=== PATIENT | female | born 1930 ===

== ENCOUNTER 2017-10-07 16:49 | Inpatient (IN) | payer BC ==
--- NOTE | 2017-10-07 17:53 | ED PDOC ---
HPI: Head Injury Time Seen by Provider: 10/07/17 17:41 Chief Complaint (Nursing): Headache History Per: Family Onset/Duration Of Symptoms: Other Patient States: Fell Striking Head Loss Of Consciousness: No Additional Complaint(s): Multiple episodes of unstaedy gait nad fall over psat 3 weeks with most recent episode 3 days ago. fell and struck left eyebrow and forehead No LOC. Pt c/o left sided headache and left periorbital pain. No nausea vomiting. denies chest pain or palpitations. No focal peripheral weakness. Past Medical History Vital Signs: Last Vital Signs Temp 98.3 F 10/07/17 17:16 Pulse 73 10/07/17 17:16 Resp 16 10/07/17 17:16 BP 151/73 H 10/07/17 17:16 Pulse Ox 99 10/07/17 17:16 - Medical History PMH: Dementia, HTN - Family History Family History: States: Unknown Family Hx - Immunization History Hx Tetanus Toxoid Vaccination: No Hx Influenza Vaccination: No Hx Pneumococcal Vaccination: No - Home Medications Home Medications: Ambulatory Orders Medication Instructions Recorded Donepezil [Aricept] 10 mg PO DAILY 10/07/17 Enalapril/Hydrochlorothiazide 5 mg PO DAILY 10/07/17 [Enalapril-Hctz 5-12.5 mg Tab] - Allergies Allergies/Adverse Reactions: Allergies Allergy/AdvReac Type Severity Reaction Status Date / Time No Known Allergies Allergy Verified 10/07/17 17:23 Review of Systems ROS Statement: Except As Marked, All Systems Reviewed And Found Negative Neurological: Positive for: Incoordination, Confusion, Headache Physical Exam - Reviewed Nursing Documentation Reviewed: Yes Vital Signs Reviewed: Yes - Physical Exam Appears: Positive for: Non-toxic, No Acute Distress Head Exam: Positive for: ATRAUMATIC, NORMOCEPHALIC. Negative for: NORMAL INSPECTION (Soft tissue swelling with left supraorbital tenderness. No deformity ) Skin: Positive for: Normal Color, Warm, DRY Eye Exam: Positive for: EOMI, Normal appearance, PERRL ENT: Positive for: Normal ENT Inspection Neck: Positive for: Normal, Painless ROM Cardiovascular/Chest: Positive for: Regular Rate, Rhythm Respiratory: Positive for: CNT, Normal Breath Sounds Gastrointestinal/Abdominal: Positive for: Normal Exam, Soft Back: Positive for: Normal Inspection Extremity: Positive for: Normal ROM Neurologic/Psych: Positive for: Alert, Gait (Unsteady). Negative for: Oriented (x2), Motor/Sensory Deficits - Laboratory Results Result Diagrams: 10/07/17 18:01 10/07/17 18:01 - ECG O2 Sat by Pulse Oximetry: 99 Disposition - Clinical Impression Clinical Impression: Syncope - Patient ED Disposition Is Patient to be Admitted: Yes - Disposition Disposition Time: 21:25 Condition: FAIR Forms: Literably (Togolese) - Pt Status Changed To: Hospital Disposition Of: Inpatient - Admit Certification Admit to Inpatient:: After my assessment, the patient will require hospitalization for at least two midnights. This is because of the severity of symptoms shown, intensity of services needed, and/or the medical risk in this patient being treated as an outpatient. - POA Present On Arrival: None
--- NOTE | 2017-10-07 18:29 | CT ---
PROCEDURE: CT HEAD WITHOUT CONTRAST. HISTORY: r/o bleed COMPARISON: None available. TECHNIQUE: Axial computed tomography images were obtained through the head/brain without intravenous contrast. Radiation dose: Total exam DLP = 753.97 mGy-cm. This CT exam was performed using one or more of the following dose reduction techniques: Automated exposure control, adjustment of the mA and/or kV according to patient size, and/or use of iterative reconstruction technique. FINDINGS: HEMORRHAGE: No intracranial hemorrhage. BRAIN: There are moderate chronic microangiopathic changes. There is no mass, mass effect or abnormal extra-axial fluid collection.There are coarse atherosclerotic calcifications in the cavernous carotid arteries. VENTRICLES: There is mild age-related global parenchymal volume loss and proportionate enlargement of the ventricles and cortical sulci. CALVARIUM: There is no calvarial fracture or extracranial soft tissue swelling. PARANASAL SINUSES: Predominantly clear. MASTOID AIR CELLS: Predominantly clear. OTHER FINDINGS: None. IMPRESSION: No acute intracranial abnormality. Moderate chronic microangiopathic changes and mild age-related global parenchymal volume loss.
--- NOTE | 2017-10-07 18:36 | RAD ---
HISTORY: COMPARISON: No prior. TECHNIQUE: Chest PA and lateral FINDINGS: LINES AND TUBES: None. LUNG AND PLEURA: The lungs are hyperinflated and there is peribronchial thickening with chronic changes in both lungs. No focal consolidation. HEART AND MEDIASTINUM: The heart is not enlarged. The hilar and mediastinal contours are within normal limits. SKELETAL STRUCTURES: The bony structures are within normal limits for the patient's age. VISUALIZED UPPER ABDOMEN: Normal. OTHER FINDINGS: None. IMPRESSION: No active pulmonary disease. COPD.
[2017-10-07 18:48] LABS: BASO % 1.1 % (0.0-2.0); EOS % 0.6 % (0.0-4.0); HEMOGLOBIN 11.8 g/dL (12.0-16.0); LYMPH # 0.6 K/uL (1.0-4.3); MEAN CELL VOLUME 100.9 fl (81.0-99.0); MEAN CORPUSCULAR HEMOGLOBIN 33.6 pg (27.0-31.0); MEAN CORPUSCULAR HGB CONC 33.3 g/dL (33.0-37.0); MONO # 0.2 K/uL (0.0-0.8); MONO % 11.1 % (0.0-10.0); NEUT # 0.8 K/uL (1.8-7.0); NEUT % 48.2 % (50.0-75.0); NRBC % 0.3 % (0.0-0.0); RBC 3.51 Mil/uL (3.80-5.20); RED CELL DISTRIBUTION WIDTH 14.3 % (11.5-14.5)
--- NOTE | 2017-10-07 18:48 | CT ---
PROCEDURE: CT scan maxillofacial skeleton 10/07/2017. HISTORY: Trauma COMPARISON: Comparison made with CT scan of the brain earlier same day. Of TECHNIQUE: Contiguous axial CT images of the maxillofacial bones were obtained. Coronal and sagittal reformats were generated. Radiation dose: Total exam DLP = 730.88 mGy-cm. This CT exam was performed using one or more of the following dose reduction techniques: Automated exposure control, adjustment of the mA and/or kV according to patient size, and/or use of iterative reconstruction technique. FINDINGS: NASAL BONES: Nasal bones appear intact. ORBITS: Bony orbits appear intact. Again noted are are bilateral ocular prostatic implants and elongation of the globes in the AP dimension possibly representing coloboma or staphyloma formation. Rule out glaucoma. Ophthalmologic consultation suggested. PARANASAL SINUSES/ MASTOIDS: Clear. MAXILLA: The maxilla including the anterior nasal spine intact. . MANDIBLE/ TEMPOROMANDIBULAR JOINTS: Unremarkable. SKULL BASE: Unremarkable. TEMPORAL BONES: Middle ears and mastoid grossly unremarkable. OTHER FINDINGS: None. IMPRESSION: No evidence of acute maxillofacial skeletal fractures. Bilateral ocular prostatic implants of. There is elongation of the globes in the AP dimension possibly representing coloboma or staphyloma formation. Rule out glaucoma. Clinical correlation recommended. Ophthalmologic consultation suggested
[2017-10-07 18:51] LABS: WHITE BLOOD COUNT 1.6 K/uL (4.8-10.8)
[2017-10-07 18:52] LABS: ALB/GLOB RATIO 1.2 (1.0-2.1); ALBUMIN 3.6 g/dL (3.5-5.0); ALT/SGPT 42 U/L (9-52); AST/SGOT 29 U/L (14-36); BLOOD UREA NITROGEN 21 mg/dl (7-17); CALCIUM 8.4 mg/dL (8.4-10.2); GFR AFRICAN-AMERICAN > 60; GFR NON-AFRICAN AMERICAN > 60
[2017-10-08 05:46] LABS: HEMOGLOBIN 12.7 g/dL (12.0-16.0); MEAN CELL VOLUME 101.4 fl (81.0-99.0); MEAN CORPUSCULAR HEMOGLOBIN 33.8 pg (27.0-31.0); MEAN CORPUSCULAR HGB CONC 33.3 g/dL (33.0-37.0); RBC 3.76 Mil/uL (3.80-5.20); RED CELL DISTRIBUTION WIDTH 14.3 % (11.5-14.5); WHITE BLOOD COUNT 2.2 K/uL (4.8-10.8)
[2017-10-08 06:06] LABS: ALB/GLOB RATIO 1.2 (1.0-2.1); ALT/SGPT 40 U/L (9-52); AST/SGOT 33 U/L (14-36); BLOOD UREA NITROGEN 20 mg/dl (7-17); CALCIUM 9.2 mg/dL (8.4-10.2); GFR AFRICAN-AMERICAN > 60; GFR NON-AFRICAN AMERICAN > 60
--- NOTE | 2017-10-08 09:38 | CARD ---
APPROVED REPORT EKG Measurement Heart [id number] CO [id number] <Conclusion> Sinus bradycardia Voltage criteria for left ventricular hypertrophy Cannot rule out Septal infarct, age undetermined Abnormal ECG
--- NOTE | 2017-10-08 09:46 | CARD ---
APPROVED REPORT EKG Measurement Heart [id number] HI [id number] <Conclusion> Normal sinus rhythm Voltage criteria for left ventricular hypertrophy Cannot rule out Septal infarct, age undetermined Abnormal ECG
--- NOTE | 2017-10-08 10:05 | CP.PCM.HP ---
History of Present Illness - History of Present Illness History of Present Illness: Patient seen and examined at bedside with Dr. Parknison 87 yr old F brought into ED by family with complaint of left sided headache and left periorbital pain s/p fall 3 days ago. Family at bedside report patient cannot ambulate on her own due to unsteady gait, unsure if patient had any loss of consciousness. Has had multiple/recurrent falls secondary to unsteady gait. PMHx includes advanced dementia and HTN. Patient is a poor historian. Denies nausea, vomiting, weakness, visual changes. Patient follows commands, moves all extremites, family denies bleeding after fall. PMD: Dr. Resendez PMHx: advanced dementia, HTN, unsteady gait with multiple falls SurgHx: denies FMHx: noncontributory SocHx: denies tobacco/Etoh or drugs Medications: see medication reconciliation Allergies: NKDA ED course: vitals stable -EKG: sinus bradycardia at 55 bpm, no significant ST-T changes -Maxillofacial CT: no acute fractures, bilateral ocular prosthetic implants present -Head CT: no acute intracranial abnormalities, moderated microangiopathic changes -CXR: no active disease -CBC: WBC 1.6, H/H 11.8/35.4, MCV 100.9, plts 210 -CMP: within normal limits - Present on Admission - Present on Admission Any Indicators Present on Admission: No History of DVT/PE: No History of Uncontrolled Diabetes: No Urinary Catheter: No Decubitus Ulcer Present: No History Surgical Site Infection Following: None Review of Systems - Review of Systems Systems not reviewed;Unavailable: Dementia (advanced) Review of Systems: patient does answer some questions but is a poor historia, says no to everything (denies body pain, chest pain, SOB, weakness, dizziness, headaches) Past Patient History - Past Medical History & Family History Past Medical History?: Yes - Past Social History Smoking Status: Never Smoked - CARDIAC Hx Cardiac Disorders: Yes - PULMONARY Hx Respiratory Disorders: No - NEUROLOGICAL Hx Neurological Disorder: Yes - HEENT Hx HEENT Problems: No - RENAL Hx Chronic Kidney Disease: No - ENDOCRINE/METABOLIC Hx Endocrine Disorders: No - HEMATOLOGICAL/ONCOLOGICAL Hx Blood Disorders: No Hx AIDS: No Hx Human Immunodeficiency Virus (HIV): No - INTEGUMENTARY Hx Dermatological Problems: No - MUSCULOSKELETAL/RHEUMATOLOGICAL Hx Musculoskeletal Disorders: No Hx Falls: Yes - GASTROINTESTINAL Hx Gastrointestinal Disorders: No - GENITOURINARY/GYNECOLOGICAL Hx Genitourinary Disorders: No - PSYCHIATRIC Hx Psychophysiologic Disorder: No Hx Substance Use: No - SURGICAL HISTORY Hx Surgeries: No - ANESTHESIA Hx Anesthesia: No Meds Allergies/Adverse Reactions: Allergies Allergy/AdvReac Type Severity Reaction Status Date / Time No Known Allergies Allergy Verified 10/07/17 17:23 Physical Exam - Constitutional Appears: No Acute Distress Additional comments: cooperative with exam, small thin frame - Head Exam Head Exam: NORMAL INSPECTION - Eye Exam Eye Exam: Periorbital tenderness (left , with minimal swelling and bruising) - ENT Exam ENT Exam: Mucous Membranes Moist - Neck Exam Neck exam: Positive for: Full Rom. Negative for: Lymphadenopathy - Respiratory Exam Respiratory Exam: Clear to Auscultation Bilateral, NORMAL BREATHING PATTERN - Cardiovascular Exam Cardiovascular Exam: REGULAR RHYTHM, +S1, +S2 - GI/Abdominal Exam GI & Abdominal Exam: Normal Bowel Sounds, Soft - Extremities Exam Extremities exam: Positive for: full ROM. Negative for: calf tenderness, pedal edema Additional comments: scars and bruises all over bilateral LE - Neurological Exam Neurological exam: Alert, CN II-XII Intact (grossly intact) Additional comments: not oriented x 3 - Psychiatric Exam Psychiatric exam: Normal Affect, Normal Mood - Skin Skin Exam: Normal Color, Warm Results - Vital Signs Recent Vital Signs: Last Vital Signs Temp 97.6 F 10/08/17 08:12 Pulse 58 L 10/08/17 08:12 Resp 18 10/08/17 08:12 BP 155/83 H 10/08/17 08:12 Pulse Ox 100 10/08/17 08:12 - Labs Result Diagrams: 10/08/17 05:33 10/08/17 05:33 Labs: Laboratory Results - last 24 hr 10/07/17 10/07/17 10/08/17 18:01 18:01 05:33 WBC 1.6 L* 2.2 L RBC 3.51 L 3.76 L Hgb 11.8 L 12.7 Hct 35.4 38.1 MCV 100.9 H 101.4 H MCH 33.6 H 33.8 H MCHC 33.3 33.3 RDW 14.3 14.3 Plt Count 210 216 MPV 8.0 Neut % (Auto) 48.2 L Lymph % (Auto) 39.0 [place] % (Auto) 11.1 H Eos % (Auto) 0.6 Baso % (Auto) 1.1 Neut # (Auto) 0.8 L Lymph # (Auto) 0.6 L [place] # (Auto) 0.2 Eos # (Auto) 0.0 Baso # (Auto) 0.0 Sodium 140 Potassium 3.6 Chloride 104 Carbon Dioxide 28 Anion Gap 12 BUN 21 H Creatinine 0.7 Est GFR ( Amer) > 60 Est GFR (Non-Af Amer) > 60 Random Glucose 117 H Calcium 8.4 Total Bilirubin 0.4 AST 29 ALT 42 Alkaline Phosphatase 86 Total Protein 6.8 Albumin 3.6 Globulin 3.2 Albumin/Globulin Ratio 1.2 10/08/17 05:33 WBC RBC Hgb Hct MCV MCH MCHC RDW Plt Count MPV Neut % (Auto) Lymph % (Auto) [place] % (Auto) Eos % (Auto) Baso % (Auto) Neut # (Auto) Lymph # (Auto) [place] # (Auto) Eos # (Auto) Baso # (Auto) Sodium 142 Potassium 3.9 Chloride 103 Carbon Dioxide 30 Anion Gap 13 BUN 20 H Creatinine 0.6 L Est GFR ( Amer) > 60 Est GFR (Non-Af Amer) > 60 Random Glucose 74 Calcium 9.2 Total Bilirubin 0.6 AST 33 ALT 40 Alkaline Phosphatase 80 Total Protein 7.4 Albumin 4.0 Globulin 3.4 Albumin/Globulin Ratio 1.2 Assessment & Plan - Assessment and Plan (Free Text) Assessment: 87 yr old F admitted for head trauma s/p fall with possible syncope. PMHx includes advanced dementia, HTN, unsteady gait with multiple falls. BMI 15.9 due to small frame. Plan: -admit to telemetry -fall precautions: 1:1 observation -Cardiology consult appreciated -Neurology consult appreciated (f/u vit B12, TSH, folate, methylmalonic acid) -heart healthy diet -resume home medications -SCD's for now, as increased fall risk -PT/OT - Date & Time Date: 10/08/17 Time: 10:15
--- NOTE | 2017-10-08 16:26 | CP.PCM.CON ---
History of Present Illness - History of Present Illness History of Present Illness: I was asked to see patient due to syncope. THe patient cannot given adequate history. There was a report of syncope. Patient is comfortable at this time. Review of Systems - Constitutional Constitutional: absent: As Per HPI, Anorexia, Chills, Daytime Sleepiness, Excessive Sweating, Fatigue, Fever, Frequent Falls, Headache, Increased Appetite , Lethargy, Malaise, Night Sweats, Snoring, Sleep Apnea, Weight Gain, Weight Loss, Weakness, Other - EENT Eyes: absent: As Per HPI, Blind Spots, Blurred Vision, Change in Vision, Decreased Night Vision, Diplopia, Discharge, Dry Eye, Exophthalmos, Floaters, Irritation, Itchy Eyes, Loss of Peripheral Vision, Pain, Photophobia, Requires Corrective Lenses, Sees Flashes, Spots in Vision, Tunnel Vision, Other Visual Disturbances, Loss of Vision, Other Ears: absent: As Per HPI, Decreased Hearing, Ear Discharge, Ear Pain, Tinnitus, Abnormal Hearing, Disequilibrium, Dizziness, Other Nose/Mouth/Throat: absent: As Per HPI, Epistaxis, Nasal Congestion, Nasal Discharge, Nasal Obstruction, Nasal Trauma, Nose Pain, Post Nasal Drip, Sinus Pain, Sinus Pressure, Bleeding Gums, Change in Voice, Dental Pain, Dry Mouth, Dysphagia, Halitosis, Hoarsness, Lip Swelling, Mouth Lesions, Mouth Pain, Odynophagia, Sore Throat, Throat Swelling, Tongue Swelling, Facial Pain, Neck Pain, Neck Mass, Other - Cardiovascular Cardiovascular: absent: As Per HPI, Acrocyanosis, Chest Pain, Chest Pain at Rest , Chest Pain with Activity, Claudication, Diaphoresis, Dyspnea, Dyspnea on Exertion, Edema, Irregular Heart Rhythm, Pain Radiating to Arm/Neck/Jaw, Leg Edema, Leg Ulcers, Lightheadedness, Orthopnea, Palpitations, Paroxysmal Nocturnal Dyspnea, Pedal Edema, Radiating Pain, Rapid Heart Rate, Slow Heart Rate, Syncope, Other - Respiratory Respiratory: absent: As Per HPI, Cough, Dyspnea, Hemoptysis, Dyspnea on Exertion , Wheezing, Snoring, Stridor, Pain on Inspiration, Chest Congestion, Excessive Mucous Production, Change in Mucous Color, Pain with Coughing, Other - Gastrointestinal Gastrointestinal: absent: As Per HPI, Abdominal Pain, Belching, Bloating, Change in Bowel Habits, Change in Stool Character, Coffee Ground Emesis, Constipation, Cramping, Diarrhea, Dyspepsia, Dysphagia, Early Satiety, Excessive Flatus, Fecal Incontinence, Heartburn, Hematemesis, Hematochezia, Loose Stools, Melena, Nausea, Odynophagia, Temesmus, Vomiting, Other - Integumentary Integumentary: As Per HPI - Neurological Neurological: Syncope - Psychiatric Psychiatric: absent: As Per HPI, Abnormal Sleep Pattern, Anhedonia, Anxiety, Auditory Hallucinations, Behavioral Changes, Change in Appetite, Change in Libido, Confusion, Depression, Difficulty Concentrating, Hallucinations, Homicidal Ideation, Hopelessness, Irritability, Memory Loss, Mood Swings, Panic Attacks, Paranoia, Suicidal Ideation, Visual Hallucinations, Tactile Hallucinations, Other - Endocrine Endocrine: absent: As Per HPI, Change in Body Appearance, Change in Libido, Cold Intolorance, Deepening of Voice, Excessive Sweating, Fatigue, Flushing, Heat Intolorance, Increase in Ring/Shoe/Hat Size, Palpitations, Polydipsia, Polyphagia, Polyuria, Other Past Patient History - Past Medical History & Family History Past Medical History?: Yes - Past Social History Smoking Status: Never Smoked - CARDIAC Hx Cardiac Disorders: Yes - PULMONARY Hx Respiratory Disorders: No - NEUROLOGICAL Hx Neurological Disorder: Yes - HEENT Hx HEENT Problems: No - RENAL Hx Chronic Kidney Disease: No - ENDOCRINE/METABOLIC Hx Endocrine Disorders: No - HEMATOLOGICAL/ONCOLOGICAL Hx Blood Disorders: No Hx AIDS: No Hx Human Immunodeficiency Virus (HIV): No - INTEGUMENTARY Hx Dermatological Problems: No - MUSCULOSKELETAL/RHEUMATOLOGICAL Hx Musculoskeletal Disorders: No Hx Falls: Yes - GASTROINTESTINAL Hx Gastrointestinal Disorders: No - GENITOURINARY/GYNECOLOGICAL Hx Genitourinary Disorders: No - PSYCHIATRIC Hx Psychophysiologic Disorder: No Hx Substance Use: No - SURGICAL HISTORY Hx Surgeries: No - ANESTHESIA Hx Anesthesia: No Meds Allergies/Adverse Reactions: Allergies Allergy/AdvReac Type Severity Reaction Status Date / Time No Known Allergies Allergy Verified 10/07/17 17:23 - Medications Medications: Current Medications Donepezil HCl (Aricept) 10 mg PO DAILY [facility] Last Admin: 10/08/17 09:33 Dose: 10 mg Enalapril Maleate (Vasotec) 5 mg PO DAILY [facility] Last Admin: 10/08/17 09:37 Dose: 5 mg Hydrochlorothiazide (Microzide) 12.5 mg PO DAILY [facility] Last Admin: 10/08/17 09:33 Dose: 12.5 mg Physical Exam - Constitutional Appears: Non-toxic - Head Exam Head Exam: NORMAL INSPECTION - Eye Exam Eye Exam: Normal appearance - ENT Exam ENT Exam: Mucous Membranes Moist - Neck Exam Neck exam: Positive for: Full Rom - Respiratory Exam Respiratory Exam: Decreased Breath Sounds - Cardiovascular Exam Cardiovascular Exam: REGULAR RHYTHM - GI/Abdominal Exam GI & Abdominal Exam: Normal Bowel Sounds - Rectal Exam Rectal Exam: Deferred - Extremities Exam Extremities exam: Negative for: pedal edema - Back Exam Back exam: NORMAL INSPECTION - Neurological Exam Neurological exam: Alert, Oriented x3 - Psychiatric Exam Psychiatric exam: Normal Affect - Skin Skin Exam: Normal Color Results - Vital Signs Recent Vital Signs: Last Vital Signs Temp 98.0 F 10/08/17 12:25 Pulse 73 10/08/17 12:25 Resp 18 10/08/17 12:25 BP 157/73 H 10/08/17 12:25 Pulse Ox 96 10/08/17 12:25 - Labs Result Diagrams: 10/08/17 05:33 10/08/17 05:33 Labs: Laboratory Results - last 24 hr 10/07/17 10/07/17 10/08/17 18:01 18:01 05:33 WBC 1.6 L* 2.2 L RBC 3.51 L 3.76 L Hgb 11.8 L 12.7 Hct 35.4 38.1 MCV 100.9 H 101.4 H MCH 33.6 H 33.8 H MCHC 33.3 33.3 RDW 14.3 14.3 Plt Count 210 216 MPV 8.0 Neut % (Auto) 48.2 L Lymph % (Auto) 39.0 [place] % (Auto) 11.1 H Eos % (Auto) 0.6 Baso % (Auto) 1.1 Neut # (Auto) 0.8 L Lymph # (Auto) 0.6 L [place] # (Auto) 0.2 Eos # (Auto) 0.0 Baso # (Auto) 0.0 Sodium 140 Potassium 3.6 Chloride 104 Carbon Dioxide 28 Anion Gap 12 BUN 21 H Creatinine 0.7 Est GFR ( Amer) > 60 Est GFR (Non-Af Amer) > 60 Random Glucose 117 H Calcium 8.4 Total Bilirubin 0.4 AST 29 ALT 42 Alkaline Phosphatase 86 Total Protein 6.8 Albumin 3.6 Globulin 3.2 Albumin/Globulin Ratio 1.2 Vitamin B12 TSH 3rd Generation 10/08/17 10/08/17 10/08/17 05:33 10:47 11:00 WBC RBC Hgb Hct MCV MCH MCHC RDW Plt Count MPV Neut % (Auto) Lymph % (Auto) [place] % (Auto) Eos % (Auto) Baso % (Auto) Neut # (Auto) Lymph # (Auto) [place] # (Auto) Eos # (Auto) Baso # (Auto) Sodium 142 Potassium 3.9 Chloride 103 Carbon Dioxide 30 Anion Gap 13 BUN 20 H Creatinine 0.6 L Est GFR ( Amer) > 60 Est GFR (Non-Af Amer) > 60 Random Glucose 74 Calcium 9.2 Total Bilirubin 0.6 AST 33 ALT 40 Alkaline Phosphatase 80 Total Protein 7.4 Albumin 4.0 Globulin 3.4 Albumin/Globulin Ratio 1.2 Vitamin B12 > 1000 H TSH 3rd Generation 1.68 - EKG Data EKG Interpreted by: Myself EKG shows normal: Sinus rhythm Assessment & Plan (1) Syncope Assessment and Plan: recommend echo for LV function. carotid doppler Status: Acute
--- NOTE | 2017-10-08 16:35 | CON ---
DATE: 10/08/2017 CHIEF COMPLAINT: Frequent falls and unsteady gait. HISTORY OF PRESENTING ILLNESS: This is an 87-year-old woman with history of arthritis, history of hypertension, who presents to the hospital with frequent falls and unsteady gait. She denies any paresthesia of extremities. She had fallen recently three days ago and struck her left eyebrow and forehead, but no loss of consciousness. Mild left-sided headache to the head. She has definitely evidence of cognitive impairment on neuro examination. She is unsteady and deconditioned on my evaluation. CAT scan of the head showed no acute intracranial abnormalities, mild generalized atrophy. I ordered for orthostatic vital signs and a B12 level since her MCV is elevated. Her B12 was more than 1000 and she is mildly dehydrated. PAST MEDICAL HISTORY: As above. ALLERGIES: NO KNOWN DRUG ALLERGIES. SOCIAL HISTORY: No illicit drug use, smoking or EtOH abuse. FAMILY HISTORY: Noncontributory. REVIEW OF SYSTEMS: A 14-point review of systems is negative except in the HPI. LABORATORY DATA: Sodium is 142, potassium 3.9, chloride 102, carbon dioxide 30, BUN of 20, creatinine of 0.6, and random glucose of 74. B12 was more than 1000. TSH was 1.68. PHYSICAL EXAMINATION: VITAL SIGNS: Temperature of 98, pulse rate of 72, blood pressure of 157/72, respiratory rate 18, and oxygen saturation of 96% by room air. GENERAL: Sitting up in bed, in no acute distress. She is very deconditioned-looking. HEENT: Head is atraumatic and normocephalic. PERRLA. Extraocular muscles intact. NECK: Supple. No JVD. No adenopathy noted. LUNGS: Clear to auscultation. No adventitious sounds. HEART: S1 and S2. Normal rate and rhythm. No murmur, rubs, or gallops. ABDOMEN: Soft, nontender, nondistended. Bowel sounds are present. EXTREMITIES: No clubbing. No cyanosis. Peripheral pulses 2+ bilaterally. NEUROLOGIC: The patient is alert and oriented to person and place, not much to month or year. Recall after five minutes is 0/3. Poor attention span. Slow thought process. Cranial nerves II through XII intact. Motor exam: Increased tone throughout, very cachectic-looking and decreased bulk and muscle in both upper and lower extremities. Moves all extremities equally. No pronator drift seen. Sensory exam: Light touch, pinprick, and proprioception were intact. DTRs are 1+ throughout. Coordination: [id number] intact. No dysmetria noted. Gait is slightly unbalanced upon standing and is wide-based. She will need some form of assistance. ASSESSMENT AND PLAN: This is an 87-year-old woman with history of hypertension, history of cognitive impairment, who has had frequent falls, likely secondary to deconditioned state causing and superimposed underlying cognitive impairment. At this time, we will recommend, 1. Physical and occupational therapy for coordination and balance exercises. Her B12 was within normal limits. 2. Recommend subacute rehab for reconditioning. 3. Orthostatic vital signs. 4. Carotid Doppler. 5. Monitor her heart rate since she has periods of bradycardia and continue with . Uvaldo Denise MD
--- NOTE | 2017-10-08 16:48 | US ---
PROCEDURE: Duplex ultrasound of the carotid and vertebral arteries. HISTORY: syncope COMPARISON: None available. TECHNIQUE: Grayscale and duplex Doppler evaluation of the cervical carotid and vertebral arteries were performed. The common carotid, carotid bifurcations and cervical ICA and proximal ECA were evaluated. The vertebral arteries were evaluated for gross patency and direction. FINDINGS: RIGHT CAROTID ARTERIES: Common Carotid Artery: Normal. Maximal flow velocity of 81.4 cm/s. Carotid Bifurcation: Relatively prominent atherosclerotic plaque identified.. Internal Carotid Artery:Normal. Maximal flow velocity of 67.6 cm/s. External Carotid Artery (proximal branches): Normal. Maximal flow velocity of 74.3 cm/s. ICA/CCA Ratio: 0.8 LEFT CAROTID ARTERIES: Common Carotid Artery: Normal. Maximal flow velocity of 92.7 cm/s. Carotid Bifurcation: Relatively prominent atherosclerotic plaque identified. Internal Carotid Artery:Normal. Maximal flow velocity of 84.1 cm/s. External Carotid Artery (proximal branches): Normal. Maximal flow velocity of 52.5 cm/s. ICA/CCA Ratio: 0.9 VERTEBRAL ARTERIES: Right Vertebral Artery: Patent. Antegrade flow. Left Vertebral Artery: Patent. Antegrade flow. OTHER FINDINGS: Note, there is poorly detected color Doppler signal at the distal carotid bulb regions bilaterally where prominent plaque is identified and therefore stenosis is difficult to determine morphologically at the origins of the bilateral internal carotid arteries. IMPRESSION: No significant stenosis identified in the bilateral common or internal carotid arteries on a spectral Doppler basis. Extensive plaques identified the bilateral carotid bulb regions nevertheless which obscures doppler evaluation in the local vicinity of these plaques. Follow-up contrast CT is recommended through the neck for better characterization.
[2017-10-08 17:39] LABS: URINE BILIRUBIN NEGATIVE (NEGATIVE); URINE BLOOD NEGATIVE (NEGATIVE); URINE CLARITY CLEAR (Clear); URINE COLOR STRAW (YELLOW); URINE GLUCOSE (UA) NEG (Normal); URINE LEUKOCYTE ESTERASE NEG Leu/uL (Negative); URINE PROTEIN NEGATIVE (NEGATIVE); URINE UROBILINOGEN 0.2-1.0 mg/dL (0.2-1.0)
[2017-10-08 22:21] LABS: FOLATE 7.2 ng/mL
--- NOTE | 2017-10-09 07:44 | CP.PCM.PN ---
Subjective - Date & Time of Evaluation Date of Evaluation: 10/09/17 Time of Evaluation: 10:00 - Subjective Subjective: Patient seen and examined at bedside with Dr. Parkinson. Remains with unstable gait. Denies chest pain, SOB, weakness or dizziness. Patient is cooperative but poor historian due to advanced dementia. Nurse reported no acute events overnight. Objective - Vital Signs/Intake and Output Vital Signs (last 24 hours): Temp Pulse Resp BP Pulse Ox 97.6 F 59 L 18 132/55 L 98 10/09/17 04:57 10/09/17 04:57 10/09/17 04:57 10/09/17 04:57 10/09/17 04:57 - Medications Medications: Current Medications Donepezil HCl (Aricept) 10 mg PO DAILY [facility] Last Admin: 10/08/17 09:33 Dose: 10 mg Enalapril Maleate (Vasotec) 5 mg PO DAILY [facility] Last Admin: 10/08/17 09:37 Dose: 5 mg Hydrochlorothiazide (Microzide) 12.5 mg PO DAILY [facility] Last Admin: 10/08/17 09:33 Dose: 12.5 mg - Labs Labs: 10/08/17 05:33 10/08/17 05:33 - Constitutional Appears: No Acute Distress - Head Exam Head Exam: ATRAUMATIC, NORMOCEPHALIC - Eye Exam Eye Exam: EOMI - ENT Exam ENT Exam: Mucous Membranes Moist - Respiratory Exam Respiratory Exam: NORMAL BREATHING PATTERN - Cardiovascular Exam Cardiovascular Exam: REGULAR RHYTHM - GI/Abdominal Exam GI & Abdominal Exam: Normal Bowel Sounds - Extremities Exam Extremities Exam: Full ROM. absent: Calf Tenderness, Pedal Edema - Neurological Exam Neurological Exam: Alert, Awake - Psychiatric Exam Psychiatric exam: Flat Affect, Normal Mood - Skin Skin Exam: Dry, Warm Assessment and Plan - Assessment and Plan (Free Text) Assessment: 87 yr old F admitted for head trauma s/p fall with possible syncope. PMHx includes advanced dementia, HTN, unsteady gait with multiple falls. BMI 15.9 due to small frame. Plan: -fall precautions: 1:1 observation -Cardiology consult appreciated: recommend echo and carotid doppler -Neurology consult appreciated (f/u vit B12, TSH, folate, methylmalonic acid) -heart healthy diet -resume home medications -SCD's for now, as increased fall risk -PT/OT
[2017-10-09 11:44] LABS: HEMOGLOBIN 11.5 g/dL (12.0-16.0); MEAN CELL VOLUME 100.8 fl (81.0-99.0); MEAN CORPUSCULAR HEMOGLOBIN 33.4 pg (27.0-31.0); MEAN CORPUSCULAR HGB CONC 33.2 g/dL (33.0-37.0); RBC 3.44 Mil/uL (3.80-5.20); RED CELL DISTRIBUTION WIDTH 14.3 % (11.5-14.5)
[2017-10-09 11:50] LABS: WHITE BLOOD COUNT 1.8 K/uL (4.8-10.8)
[2017-10-09 15:58] LABS: HEPATITIS B SURFACE AG Negative (NEGATIVE)
[2017-10-09 16:04] LABS: HEPATITIS A IGM NEGATIVE (NEGATIVE); HEPATITIS B CORE AB NEGATIVE (NEGATIVE)
[2017-10-09 16:16] LABS: HEPATITIS C ANTIBODY NEGATIVE (NEGATIVE)
--- NOTE | 2017-10-09 17:55 | CP.PCM.PN ---
Subjective - Date & Time of Evaluation Date of Evaluation: 10/09/17 Time of Evaluation: 17:50 - Subjective Subjective: patient is currently being cleaned by nursing staff. echo reviewed There is calcific aortic stenosis. conitnue neuro workup. it is difficult to undergo invasive workup given the patient's dementia. medical therapy Objective - Vital Signs/Intake and Output Vital Signs (last 24 hours): Temp Pulse Resp BP Pulse Ox 98.1 F 74 17 145/72 100 10/09/17 16:14 10/09/17 16:14 10/09/17 16:14 10/09/17 16:14 10/09/17 16:14 - Medications Medications: Current Medications Donepezil HCl (Aricept) 10 mg PO DAILY [facility] Last Admin: 10/09/17 08:47 Dose: 10 mg Enalapril Maleate (Vasotec) 5 mg PO DAILY [facility] Last Admin: 10/09/17 08:46 Dose: 5 mg Hydrochlorothiazide (Microzide) 12.5 mg PO DAILY [facility] Last Admin: 10/09/17 08:47 Dose: 12.5 mg - Labs Labs: 10/09/17 11:14 10/08/17 05:33 Assessment and Plan (1) Syncope Status: Acute
--- NOTE | 2017-10-10 13:57 | CARD ---
APPROVED REPORT EXAM: Two-dimensional and M-mode echocardiogram with Doppler and color Doppler. Other Information Quality : GoodRhythm : INDICATION Syncope 2D DIMENSIONS IVSd1.28 (0.7-1.1cm)LVDd3.80 (3.9-5.9cm) LVOT Diameter1.56 (1.8-2.4cm)PWd1.13 (0.7-1.1cm) IVSs1.57 (0.8-1.2cm)LVDs2.38 (2.5-4.0cm) FS (%) 37.2 %PWs1.42 (0.8-1.2cm) M-Mode DIMENSIONS Left Atrium (MM)2.99 (2.5-4.0cm)IVSd1.31 (0.7-1.1cm) Aortic Root3.02 (2.2-3.7cm)LVDd4.73 (4.0-5.6cm) Aortic Cusp Exc.1.06 (1.5-2.0cm)PWd1.21 (0.7-1.1cm) IVSs1.21 cmFS (%) 32 % LVDs3.24 (2.0-3.8cm)PWs1.18 cm Aortic Valve AoV Peak Ctcdbsfb883.1cm/sAoV VTI67.7cmAO Peak GR.42mmHg LVOT Peak Sjfjvbfy84.9cm/sLVOT VTI18.56cmAO Mean GR.25mmHg LINDSEY (VMAX)0.71pi8FFK (VTI)0.38cm2 Mitral Valve MV E Wnersxlp30.0cm/sMV E Peak Gr.104mmHgMV DECEL ELXN147or MV A Dpnqkmgs428.5cm/sMV HUZ192ndL/A ratio0.5 MVA (PHT)1.97cm2 TDI Lateral E' Peak V5.70cm/sMedial E' Peak V4.07cm/sE/Lateral E'10.0 E/Medial E'14.0 Pulmonary Valve PV Peak Gzshdhpc012.2cm/s Tricuspid Valve TR Peak Bcnjpjar325ey/sRAP PHWXGSMP93igAkLX Peak Gr.26mmHg [id number] LEFT VENTRICLE The left ventricle is normal size. There is mild concentric left ventricular hypertrophy. The left ventricular function is normal. The left ventricular ejection fraction is within the normal range. The Ejection Fraction is 60-65%. There is normal LV segmental wall motion. Transmitral Doppler flow pattern is Grade I-abnormal relaxation pattern. RIGHT VENTRICLE The right ventricle is normal size. The right ventricular systolic function is normal. ATRIA The left atrium size is normal. The right atrium size is normal. AORTIC VALVE The aortic valve is normal in structure. No aortic regurgitation is present. There is no aortic valvular stenosis. MITRAL VALVE The mitral valve is normal in structure. There is no mitral valve stenosis. Mitral regurgitation is trace. TRICUSPID VALVE The tricuspid valve is normal in structure. There is trace tricuspid regurgitation. PULMONIC VALVE The pulmonary valve is normal in structure. There is no pulmonic valvular regurgitation. GREAT VESSELS The aortic root is normal in size. The IVC is normal in size and collapses >50% with inspiration. PERICARDIAL EFFUSION The pericardium appears normal. <Conclusion> The left ventricle is normal size. There is mild concentric left ventricular hypertrophy. The left ventricular function is normal. The left ventricular ejection fraction is within the normal range. The Ejection Fraction is 60-65%. Mitral regurgitation is trace. There is trace tricuspid regurgitation.
[2017-10-10 17:58] LABS: METHYLMALONIC ACID,SERUM 260 nmol/L (87-318)
--- NOTE | 2017-10-11 07:55 | CP.PCM.PN ---
Subjective - Date & Time of Evaluation Date of Evaluation: 10/11/17 Time of Evaluation: 07:25 - Subjective Subjective: sitting in bed. pleasant. Objective - Vital Signs/Intake and Output Vital Signs (last 24 hours): Temp Pulse Resp BP Pulse Ox 97.9 F 56 L 18 131/61 99 10/11/17 05:00 10/11/17 05:00 10/11/17 05:00 10/11/17 05:00 10/11/17 05:00 - Medications Medications: Current Medications Donepezil HCl (Aricept) 10 mg PO DAILY [facility] Last Admin: 10/10/17 09:13 Dose: 10 mg Enalapril Maleate (Vasotec) 5 mg PO DAILY [facility] Last Admin: 10/10/17 09:13 Dose: 5 mg Hydrochlorothiazide (Microzide) 12.5 mg PO DAILY [facility] Last Admin: 10/10/17 09:13 Dose: 12.5 mg - Labs Labs: 10/09/17 11:14 10/08/17 05:33 - Constitutional Appears: Non-toxic - Head Exam Head Exam: NORMAL INSPECTION - Eye Exam Eye Exam: Normal appearance - ENT Exam ENT Exam: Mucous Membranes Moist - Neck Exam Neck Exam: Full ROM - Respiratory Exam Respiratory Exam: NORMAL BREATHING PATTERN - Cardiovascular Exam Cardiovascular Exam: REGULAR RHYTHM, Murmur - GI/Abdominal Exam GI & Abdominal Exam: Normal Bowel Sounds - Rectal Exam Rectal Exam: Deferred - Extremities Exam Extremities Exam: absent: Pedal Edema - Back Exam Back Exam: NORMAL INSPECTION - Neurological Exam Neurological Exam: Alert - Psychiatric Exam Psychiatric exam: Normal Affect - Skin Skin Exam: Normal Color Assessment and Plan (1) Syncope Assessment & Plan: possibly due to Status: Acute (2) Aortic stenosis Assessment & Plan: severe by echo. patient has baseline dementia. no current heart failure o angina. conisder conservative therapy given lack of ability to give consent or adequately give history Status: Acute
--- NOTE | 2017-10-11 22:48 | CP.PCM.PN ---
Subjective - Date & Time of Evaluation Date of Evaluation: 10/10/17 Time of Evaluation: 10:00 - Subjective Subjective: Patient remains stable Has no chest pain or SOB Has no fever. Has good intake had a discussion with family re plans for rehab. Objective - Vital Signs/Intake and Output Vital Signs (last 24 hours): Temp Pulse Resp BP Pulse Ox 98.7 F 76 16 119/47 L 97 10/11/17 20:01 10/11/17 20:01 10/11/17 20:01 10/11/17 20:01 10/11/17 20:01 - Medications Medications: Current Medications Donepezil HCl (Aricept) 10 mg PO DAILY [facility] Last Admin: 10/11/17 08:41 Dose: 10 mg Enalapril Maleate (Vasotec) 5 mg PO DAILY [facility] Last Admin: 10/11/17 08:41 Dose: 5 mg Hydrochlorothiazide (Microzide) 12.5 mg PO DAILY [facility] Last Admin: 10/11/17 08:41 Dose: 12.5 mg - Labs Labs: 10/09/17 11:14 10/08/17 05:33
--- NOTE | 2017-10-11 22:50 | CP.PCM.PN ---
Subjective - Date & Time of Evaluation Date of Evaluation: 10/11/17 Time of Evaluation: 13:20 - Subjective Subjective: Patient remains stable Has no fever. On one to one. Objective - Vital Signs/Intake and Output Vital Signs (last 24 hours): Temp Pulse Resp BP Pulse Ox 98.7 F 76 16 119/47 L 97 10/11/17 20:01 10/11/17 20:01 10/11/17 20:01 10/11/17 20:01 10/11/17 20:01 - Medications Medications: Current Medications Donepezil HCl (Aricept) 10 mg PO DAILY [facility] Last Admin: 10/11/17 08:41 Dose: 10 mg Enalapril Maleate (Vasotec) 5 mg PO DAILY [facility] Last Admin: 10/11/17 08:41 Dose: 5 mg Hydrochlorothiazide (Microzide) 12.5 mg PO DAILY [facility] Last Admin: 10/11/17 08:41 Dose: 12.5 mg - Labs Labs: 10/09/17 11:14 10/08/17 05:33
--- NOTE | 2017-10-12 10:49 | CP.PCM.PN ---
Subjective - Date & Time of Evaluation Date of Evaluation: 10/12/17 Time of Evaluation: 10:48 - Subjective Subjective: Patient remains stable Objective - Vital Signs/Intake and Output Vital Signs (last 24 hours): Temp Pulse Resp BP Pulse Ox 97.8 F 59 L 20 123/52 L 96 10/12/17 08:21 10/12/17 08:21 10/12/17 08:21 10/12/17 08:21 10/12/17 08:21 - Medications Medications: Current Medications Donepezil HCl (Aricept) 10 mg PO DAILY [facility] Last Admin: 10/12/17 09:34 Dose: 10 mg Enalapril Maleate (Vasotec) 5 mg PO DAILY [facility] Last Admin: 10/12/17 09:34 Dose: 5 mg Hydrochlorothiazide (Microzide) 12.5 mg PO DAILY [facility] Last Admin: 10/12/17 09:34 Dose: 12.5 mg - Labs Labs: 10/09/17 11:14 10/08/17 05:33
--- NOTE | 2017-10-12 14:57 | CP.PCM.CON ---
History of Present Illness - History of Present Illness History of Present Illness: consult requested for agitation 87 yr old F brought into ED by family with complaint of left sided headache and left periorbital pain s/p fall 3 days ago. Family at bedside report patient cannot ambulate on her own due to unsteady gait, unsure if patient had any loss of consciousness. Has had multiple/recurrent falls secondary to unsteady gait. PMHx includes advanced dementia and HTN. pt on evaluation, confused oriented to person only, reporting she is living with her parents, unable to recognize the date stated she tends to feel anxious but unable to verbalize why , denied any current changes in sleep or appetite denied perceptual disturbances, denied symptoms of depression denied suicidal ideation Past Patient History - Past Medical History & Family History Past Medical History?: Yes - Past Social History Smoking Status: Never Smoked - CARDIAC Hx Cardiac Disorders: Yes - PULMONARY Hx Respiratory Disorders: No - NEUROLOGICAL Hx Neurological Disorder: Yes - HEENT Hx HEENT Problems: No - RENAL Hx Chronic Kidney Disease: No - ENDOCRINE/METABOLIC Hx Endocrine Disorders: No - HEMATOLOGICAL/ONCOLOGICAL Hx Blood Disorders: No Hx AIDS: No Hx Human Immunodeficiency Virus (HIV): No - INTEGUMENTARY Hx Dermatological Problems: No - MUSCULOSKELETAL/RHEUMATOLOGICAL Hx Musculoskeletal Disorders: No Hx Falls: Yes - GASTROINTESTINAL Hx Gastrointestinal Disorders: No - GENITOURINARY/GYNECOLOGICAL Hx Genitourinary Disorders: No - PSYCHIATRIC Hx Psychophysiologic Disorder: No Hx Substance Use: No - SURGICAL HISTORY Hx Surgeries: No - ANESTHESIA Hx Anesthesia: No Meds Allergies/Adverse Reactions: Allergies Allergy/AdvReac Type Severity Reaction Status Date / Time No Known Allergies Allergy Verified 10/07/17 17:23 - Medications Medications: Current Medications Donepezil HCl (Aricept) 10 mg PO DAILY [facility] Last Admin: 10/12/17 09:34 Dose: 10 mg Enalapril Maleate (Vasotec) 5 mg PO DAILY [facility] Last Admin: 10/12/17 09:34 Dose: 5 mg Hydrochlorothiazide (Microzide) 12.5 mg PO DAILY [facility] Last Admin: 10/12/17 09:34 Dose: 12.5 mg Physical Exam - Psychiatric Exam Additional comments: pt seen in bed cooperative, confused oriented to person only speech circumstantial denied suicidal or homicidal ideation denied perceptual disturbances, alert awake, poor insight into illness Results - Vital Signs Recent Vital Signs: Last Vital Signs Temp 97.4 F L 10/12/17 12:33 Pulse 72 10/12/17 12:33 Resp 20 10/12/17 12:33 BP 108/54 L 10/12/17 12:33 Pulse Ox 96 10/12/17 12:33 - Labs Result Diagrams: 10/09/17 11:14 10/08/17 05:33 Assessment & Plan - Assessment and Plan (Free Text) Assessment: 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
[2017-10-13 08:33] VITALS: RESP 20
[2017-10-13 12:57] VITALS: O2SAT 99
[2017-10-13 16:30] VITALS: BP 129/55; PULSE 76; TEMP 97.4
== END 2017-10-13 17:40 | DRG 312 ==
LOC: H.ER 16:49 → H.ERHOLD 21:24 → H.TEL 22:45
PROVIDERS: ADMIT Family Medicine; ATTEND Family Medicine
DX: R55 Syncope and collapse (principal); E86.0 Dehydration; F01.50 Vascular dementia, unspecified severity, without behavioral disturbance, psychotic disturbance, mood disturbance, and anxiety; Z68.1 Body mass index [BMI] 19.9 or less, adult; I10 Essential (primary) hypertension; F41.9 Anxiety disorder, unspecified; R29.6 Repeated falls; R26.81 Unsteadiness on feet; I35.0 Nonrheumatic aortic (valve) stenosis; S09.90XA Unspecified injury of head, initial encounter; W19.XXXA Unspecified fall, initial encounter